=== PATIENT | male | born 1960 | race Caucasian/White ===

== ENCOUNTER → 2018-01-17 | Day surgery (SDC) | payer OTHER ==
[~2018-01-17] MED LIST: AMBIEN 5 MG TABL5 M1 PO; IBUPROFEN 200200 M1 PO; LIPITOR40 MG PO; PERCOCET PO; PRINIVIL40 MG PO; TYLENOL325 MG PO
--- NOTE | ~2018-01-17 | OP ---
[address] [address] OPERATIVE REPORT Name: NAS DUNHAM Room: [facility] [employer].#: [id number] Admission: 01/17/18 Attend Phys: Henrique Bettencourt II Discharge: Date of : 56 Report #: [id number] THIS REPORT FOR: //name// CC: Negin Bettencourt DATE OF SERVICE: 01/17/2018 PREOPERATIVE DIAGNOSIS: Right shoulder effusion with positive MRI. POSTOPERATIVE DIAGNOSIS: Right shoulder bone and cartilage debris with joint effusion, rotator cuff tear. PROCEDURE PERFORMED: Right shoulder arthroscopic surgery with extensive debridement of glenohumeral joint, labral tears and joint effusion. SURGEON: Henrique Bettencourt II, DO SMT TECHNICIAN: MARY Sanches. SURGEON: DO ALBERTINA. ANESTHESIA: Per operative record. ESTIMATED BLOOD LOSS: Minimal. ANTIBIOTICS: Per operative record. DRAINS: None. COMPLICATIONS: None. CONDITION OF THE PATIENT: Stable to recovery room. BRIEF HISTORY: The patient had prior surgery approximately a year ago of his rotator cuff, was doing extremely well until approximately 1 month ago when he noticed pain increasing at physical therapy and an increased effusion in his shoulder. The patient had limited range of motion and had felt a pop within the shoulder during his exercises at home as well as at therapy. The patient had previously attempted a steroid injection, which did not provide relief and a previous MRI was also performed. This showed extensive effusion within the shoulder as well as loose chunks of bone and cartilage and rotator cuff tearing. Upon aspiration in the office, there was noted to be a yellowish tinged cartilaginous fluid, which was removed, did not appear purulent; however, was discussed arthroscopic surgery to remove excess effusion and bone and cartilage debris as well as evaluate the rotator cuff. [place] [address] OPERATIVE REPORT Name: NAS DUNHAM [id number] Admission: 01/17/18 Attend Phys: Henrique Bettencourt II Discharge: Date of : 56 Report #: [id number] all these with the surgery, anesthesia and assumed all risks. DESCRIPTION OF PROCEDURE: The patient was taken to the operative suite and placed supine on the operative table and given appropriate anesthesia. The patient's affected shoulder was sterilely prepped and draped in modified beach chair position. All bony prominences well padded. Surgery was begun by posterior portal incision. The arthroscope was advanced in the joint. There was found to be a significant effusion with yellowish tinged fluid, which was sucked out through the suction establishing an anterior portal. The shaver was then introduced and utilizing this in a superior inferior the anterior and posterior portions, extensive debridement was performed. There was found to be approximately 1.5 cm rotator cuff tear noted to the lateral margin of the supraspinatus; however, due to the excess fluid within the shoulder and question of purulence, cultures were obtained and this was debrided along the rotator cuff as well as the subacromial space in the anterior and posterior portions of this to remove all excess fluid and debris. The shoulder was ran 9 liters of fluid through to copiously irrigate this region. It was then drained of arthroscopic fluid, closed with a 4-0 nylon in simple fashion. Dermabond and sterile dressing applied. The patient was placed in a sling and transported to recovery in stable condition. Counts were correct throughout the procedure. By: [id number] Bettencourt II, DO /nt
[2018-01-17 10:40] LABS: HEMATOCRIT 33.8 % (42.0-52.0); HEMOGLOBIN 11.2 gm/dL (14.0-18.0); MCH 26.5 pg (26.0-34.0); MCV 80.3 fL (80.0-100.0); RBC 4.21 mil/uL (4.50-6.00); RDW-CV 13.2 % (10.5-14.5); WBC 9.3 thou/uL (4.0-11.0)
[2018-01-17 10:49] LABS: CALCIUM 9.7 mg/dL (8.5-10.1); CREATININE 0.9 mg/dL (0.6-1.3); POTASSIUM 4.3 mmol/L (3.5-5.1)
[2018-01-17 10:57] LABS: TOTAL BILIRUBIN 0.6 mg/dL (<0.1-1.0); TOTAL PROTEIN 8.9 g/dL (6.4-8.2)
[2018-01-17 16:01] LABS: BF RBC 126492 /mm3; CLARITY CLOUDY; COLOR RED; TOTAL CELL COUNT 92749 /mm3; TOTAL VOLUME 7 ml
[2018-01-17 16:05] LABS: BF LYMPHOCYTES 4 %; BF POLYS 96 %; SOURCE RIGHT SHOULDER
--- NOTE | 2018-01-17 16:29 | EKG ---
[place] [address] ELECTROCARDIOGRAM REPORT Name: NAS DUNHAM Room: [facility].#: [id number] Admission: 01/17/18 Attend Phys: Henrique Bettencourt II Discharge: Date of : 56 Report #: [id number] THIS REPORT FOR: //name// [facility] Test Date: 2018-01-17 Test Time: 10:47:10 Pat Name: NAS DUNHAM Department: Room: Gender: M Clinical Appeals Specialist: : 1960 Requested By: Henrique Bettencourt Order Number: [id number] Reading MD: Mustapha Gatica Measurements Intervals [place] Rate: 79 P: 4 VT: 183 QRS: -7 QRSD: 95 T: 44 QT: 354 QTc: 406 Interpretive Statements Sinus rhythm No previous ECG available for comparison Electronically Signed On 01-17-2018 16:29:37 TELETYPE MECHANIC by Mustapha Gatica [email or web address] <ELECTRONICALLY SIGNED> By: Mustapha Gatica MD, [facility] 01/17/18 1629 1047 [id number] Mustapha Gatica MD, FAC /EPI
[2018-01-19 13:07] LABS: BODY FLUID PROTEIN 6.9 g/dL (())
[2018-01-23 15:10] LABS: SOURCE SYNOVIAL
== END | disposition home or self-care (01) ==
LOC: M.SUR 10:24
PROVIDERS: Orthopaedic Surgery
DX: M89.8X1 Other specified disorders of bone, shoulder (principal); M24.111 Other articular cartilage disorders, right shoulder; M75.101 Unspecified rotator cuff tear or rupture of right shoulder, not specified as traumatic; M25.411 Effusion, right shoulder; J44.9 Chronic obstructive pulmonary disease, unspecified; I10 Essential (primary) hypertension; E78.00 Pure hypercholesterolemia, unspecified; Z98.890 Other specified postprocedural states; Z79.891 Long term (current) use of opiate analgesic; Z79.899 Other long term (current) drug therapy; Z96.643 Presence of artificial hip joint, bilateral; Z82.49 Family history of ischemic heart disease and other diseases of the circulatory system

== ENCOUNTER 2019-02-21 19:59 | Emergency (ER) | payer OTHER ==
[~2019-02-21] VITALS: Ht 175.3 cm; Wt 99.8 kg
[2019-02-21] MEDS ORDERED: NORVASC5 M1 (20:13)
[2019-02-21] MEDS ORDERED: CUBICIN500 MG (20:13)
[2019-02-21 20:53] VITALS: BP 150/89
--- NOTE | 2019-02-22 12:52 | EKG ---
[place] [address] ELECTROCARDIOGRAM REPORT Name: NAS DUNHAM Room: [facility]#: [id number] Admission: 02/21/19 Attend Phys: Discharge: 02/21/19 Date of : 56 Report #: [id number] THIS REPORT FOR: //name// [facility] ED Test Date: 2019-02-21 Test Time: 20:11:08 Pat Name: NAS DUNHAM Department: Room: Gender: M Loan Teller: : 1960 Requested By: Henrique Mendez Order Number: [id number] MD: Nas Raygoza Measurements Intervals [place] Rate: 68 P: 22 WV: 209 QRS: -21 QRSD: 99 T: 43 QT: 371 QTc: 395 Interpretive Statements Sinus rhythm Borderline prolonged [place] interval Abnormal R-wave progression, early transition Left ventricular hypertrophy Compared to ECG 01/17/2018 10:47:10 Left ventricular hypertrophy now present Electronically Signed On 02-22-2019 12:51:58 PLASTIC SURGERY MANAGER by Nas Raygoza [email or web address] <ELECTRONICALLY SIGNED> By: Nas Raygoza MD, [facility] 02/22/19 1251 10 10 Nas Raygoza MD, FACC /EPI
== END 2019-02-21 20:53 | disposition home or self-care (01) ==
LOC: M.ERS 19:59
DX: I10 Essential (primary) hypertension (principal); Z98.890 Other specified postprocedural states